=== PATIENT | female | born 1980 | race Asian ===

== ENCOUNTER 2018-05-24 17:15 | Emergency (ER) | payer BC, OTHER ==
[~2018-05-24] VITALS: Ht 160 cm; Wt 73.5 kg
[2018-05-24 17:30] VITALS: Ht 160 cm; Wt 73.5 kg
[2018-05-24 19:36] VITALS: BP 155/82
== END 2018-05-24 19:36 | disposition home or self-care (01) ==
LOC: ED 17:15
DX: S61.215A Laceration without foreign body of left ring finger without damage to nail, initial encounter (principal); J45.909 Unspecified asthma, uncomplicated; I10 Essential (primary) hypertension; E11.9 Type 2 diabetes mellitus without complications; Z98.890 Other specified postprocedural states; W45.8XXA Other foreign body or object entering through skin, initial encounter; Y93.G1 Activity, food preparation and clean up; Y92.89 Other specified places as the place of occurrence of the external cause; Y99.8 Other external cause status
CPT/HCPCS: 90715; J2001